=== PATIENT | male | born 2000 | race African-American/Black ===

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

== ENCOUNTER 2022-04-10 07:53 | Emergency (ER) | payer OTHER ==
[2022-04-10] VITALS (7 sets, daily range): BP systolic 121–136; BP diastolic 83–95
[~2022-04-10] VITALS: Ht 172.7 cm; Wt 63.6 kg
[2022-04-10 08:19] LABS: HEMATOCRIT 50.6 % (39.0-50.0); HEMOGLOBIN 15.6 g/dl (14.0-18.0); IMMATURE GRANULOCYTES 0.7 % (0.0-5.0); MEAN CELL VOLUME 72.3 fL CALC (80.0-100.0); MEAN CORPUSCULAR HGB 22.3 pG CALC (26.0-32.0); MEAN CORPUSCULAR HGB CONC 30.8 g/dL CAL (32.0-36.0); NEUT# 3.69 thou/uL (1.82-7.42); RED CELL DISTRI WIDTH 16.7 % (11.5-15.5)
[2022-04-10 08:52] LABS: ALBUMIN 4.5 g/dL (3.2-5.0); ALKALINE PHOSPHATASE 111 u/l (38-126); ANION GAP 13 (6-22 (CALC)); BILIRUBIN, TOTAL 0.8 mg/dL (0.0-1.4); BUN 12 mg/dL (8-21); BUN/CREATININE RATIO 13 (12-20 (CALC)); CARBON DIOXIDE 28 mmol/l (22-30); CHLORIDE 101 mmol/l (95-108); CREATININE 0.9 mg/dL (0.7-1.3); GFR FOR AFR.AMER. > 60 ML/MIN (>=60 (CALC)); GFR OTHER RACES > 60 ML/MIN (>=60 (CALC)); POTASSIUM 3.6 mmol/l (3.5-5.1); SGOT/AST 32 u/l (17-59); SODIUM 139 mmol/l (137-146); TOTAL PROTEIN 7.8 g/dL (6.3-8.2)
[2022-04-10] MEDS ORDERED: COLCHICINE0.6 M2 PO (09:36)
== END 2022-04-10 10:07 | disposition home or self-care (01) ==
LOC: ED 07:53
PROVIDERS: Family Medicine
DX: I31.9 Disease of pericardium, unspecified (principal); Z20.822 Contact with and (suspected) exposure to COVID-19

== ENCOUNTER 2022-05-08 23:23 | Emergency (ER) | payer OTHER ==
[~2022-05-08] VITALS: Ht 172.7 cm; Wt 65.9 kg
[~2022-05-08 23:23] MED LIST changes: +COLCHICINE0.6 M2 PO
[2022-05-09 00:09] VITALS: BP 128/91
[2022-05-09 00:21] VITALS: BP 128/91
== END 2022-05-09 00:47 | disposition home or self-care (01) ==
LOC: ED 23:23
DX: L72.0 Epidermal cyst (principal)

== ENCOUNTER 2022-05-24 02:04 | Emergency (ER) | payer OTHER ==
[~2022-05-24] VITALS: Ht 172.7 cm; Wt 66.0 kg
[2022-05-24 02:15] VITALS: BP 143/88
[2022-05-24 02:31] VITALS: BP 117/53
[2022-05-24 02:40] LABS: URINE BILIRUBIN - DIPSTICK NEGATIVE (NEGATIVE); URINE BLOOD DIPSTICK NEGATIVE (NEGATIVE); URINE COLOR YELLOW; URINE GLUCOSE - DIPSTICK NEGATIVE (NEGATIVE); URINE KETONE NEGATIVE (NEGATIVE); URINE LEUK ESTERASE NEGATIVE (NEGATIVE); URINE PROTEIN - DIPSTICK NEGATIVE (NEG-TRACE); URINE SPECIFIC GRAVITY >=1.030; URINE UROBILINOGEN - DIPSTICK 0.2 E.U./dL (0.2)
[2022-05-24 02:44] LABS: URINE NITRITE - DIPSTICK NEGATIVE (Negative)
[2022-05-24 03:19] VITALS: BP 117/53
== END 2022-05-24 03:47 | disposition home or self-care (01) ==
LOC: ED 02:04
PROVIDERS: Emergency Medicine
DX: F41.9 Anxiety disorder, unspecified (principal); Z20.2 Contact with and (suspected) exposure to infections with a predominantly sexual mode of transmission; Z20.822 Contact with and (suspected) exposure to COVID-19